=== PATIENT | male | born 1985 | race Caucasian/White ===

== ENCOUNTER 2019-12-13 07:36 | Emergency (ER) | payer SELFPAY ==
--- NOTE | 2019-12-13 07:50 | ER Document Report ---
ED Medical Screen (RME) - General Chief Complaint: Chest Pain Stated Complaint: CHEST PAIN Time Seen by Provider: 12/13/19 07:39 Notes: 34-year-old male with hypertension and GEOVANNA presents to the emergency department with chief complaint of palpitations and chest pain. Symptoms have been intermittent for the last 4 days but symptoms got acutely worse over the last several hours. Patient states that the palpitations are new for him and he has never had chest pain before. Chest pain is on the left anterior chest and does not radiate. Reported some nausea but not current, no diaphoresis, complains of shortness of breath. EXAM: Nontoxic-appearing, lungs are clear to auscultation in all [place], tachycardia with a rate of 108, S1-S2 heard no murmurs or arrhythmias. I have greeted and performed a rapid initial assessment of this patient. A comprehensive ED assessment and evaluation of the patient, analysis of test results and completion of medical decision making process will be conducted by an additional ED providers. Physical Exam - Vital signs Vitals: Temp 98.5 F 12/13/19 07:36 Course - Vital Signs Vital signs: Temp Pulse Resp BP Pulse Ox 98.5 F 12/13/19 07:36
--- NOTE | 2019-12-13 08:04 | ER Document Report ---
ED Cardiac - General Chief Complaint: Chest Pain Stated Complaint: CHEST PAIN Time Seen by Provider: 12/13/19 07:39 Notes: HPI: 34-year-old male with past medical history as recorded including high blood pressure and panic attack/anxiety. Patient states the last 4 days he has had intermittent episodes of "some palpitations" feeling some tingling to bilateral hands and feet. He denies any fevers, vomiting, calf pain or leg swelling, recent trips or travel. No cardiac history. Patient is unsure whether this is anxiety/panic related. He does smoke cigarettes. He denies any family history of early heart attacks or strokes. Currently chest pain-free. ROS: See HPI All other review of systems reviewed and otherwise negative Reviewed vital signs and nursing note as charted by RN. PHYSICAL EXAM: CONSTITUTIONAL: Alert and oriented and responds appropriately to questions. Well-appearing; well-nourished HEAD: Normocephalic; atraumatic EYES: PERRL; Conjunctivae clear, sclerae non-icteric CARD: Regular rate and rhythm; no murmurs; symmetric distal pulses RESP: Normal chest excursion without splinting or tachypnea; breath sounds clear and equal bilaterally; no wheezes, no rhonchi, no rales ABD/GI: Normal bowel sounds; non-distended; soft, non-tender; no palpable organomegaly or masses BACK: The back appears normal and is non-tender to palpation EXT: Normal ROM in all joints; non-tender to palpation; no edema SKIN: No acute lesions noted NEURO: CN 2-12 intact; 5/5 bilateral upper and lower extremity strength with sensation intact to light touch PSYCH: The patient's mood and manner are appropriate. Grooming and personal hygiene are appropriate. - Related Data Allergies/Adverse Reactions: No Known Allergies Allergy (Unverified 12/13/19 09:05) Past Medical History - Social History Smoking Status: Current Some Day Smoker Family History: Reviewed & Not Pertinent Patient has suicidal ideation: No Patient has homicidal ideation: No Physical Exam - Vital signs Vitals: Temp 98.5 F 12/13/19 07:36 Course - Re-evaluation Re-evalutation: Given the history and physical examination with intermittent symptomatology including bilateral paresthesias to the hands and feet, with a history of anxiety, with minimal cardiac risk factors, we will obtain a cardiac panel, EKG, x-ray of the chest, and reassess. I do not believe that the patient requires any further imaging or laboratory values at this time. I do have extremely low pretest probability for ACS, PE, or dissection. 12/13/19 08:03 EKG shows heart of 102, sinus tachycardia, normal axis, no obvious ST elevation or depression. Slightly inverted/flattening T waves in leads aVL, aVF, V4 through V6 12/13/19 10:07 Imaging and laboratory results as recorded. Patient is actively having no chest pain. Heart score is less than or equal to 3. Patient symptom onset was 4 days ago leading me to believe a repeat troponin is unnecessary. I have replaced the patient's potassium. Given the above history and physical, patient will be discharged home with strict return precautions and I will provide follow-up with cardiology. Patient is very comfortable with this plan. No suicidal homicidal ideations. I do not believe acute anxiety treatment is necessary at this moment. - Vital Signs Vital signs: Temp Pulse Resp BP Pulse Ox 98.5 F 12/13/19 07:36 - Laboratory Result Diagrams: 12/13/19 08:00 12/13/19 08:00 Laboratory results interpreted by me: 12/13/19 12/13/19 08:00 08:00 RBC 3.82 L Hgb 12.7 L MCV 99 H RDW 16.8 H Lymph % (Auto) 45.1 H Sodium 134.9 L Potassium 3.5 L Glucose 139 H AST 96 H Total Protein 8.4 H Discharge - Discharge Clinical Impression: Anxiety reaction Chest pain Qualifiers: Chest pain type: unspecified Qualified Code(s): R07.9 - Chest pain, unspecified Condition: Good Disposition: HOME, SELF-CARE Additional Instructions: Come back immediately for any return of pain, worsening pain, lightheadedness or dizziness, leg swelling, fevers or vomiting, or any other acute problems. Please follow-up with cardiology as we have discussed and help expedite for you. Referrals: HEMAL MCDONNELL MD [ACTIVE STAFF] - Follow up as needed
[2019-12-13 08:21] LABS: ABSOLUTE BASOPHILS # (AUTO) 0.1 10^3/uL (0.0-0.2); ABSOLUTE EOSINOPHILS # (AUTO) 0.1 10^3/uL (0.0-0.6); ABSOLUTE LYMPHOCYTES (AUTO) 2.1 10^3/uL (0.5-4.7); ABSOLUTE MONOCYTES (AUTO) 0.3 10^3/uL (0.1-1.4); ABSOLUTE NEUT (AUTO) 2.1 10^3/uL (1.7-8.2); BASOPHILS % (AUTO) 1.3 % (0-2); EOSINOPHILS % (AUTO) 1.5 % (0-6); HEMATOCRIT 37.9 % (37.9-51.0); LYMPHOCYTES % (AUTO) 45.1 % (13-45); MEAN CORPUSCULAR VOLUME 99 fl (80-97); MONOCYTES % (AUTO) 7.1 % (3-13); PLATELET COUNT 298 10^3/uL (150-450); RED BLOOD COUNT 3.82 10^6/uL (4.35-5.55); RED CELL DISTRIBUTION WIDTH 16.8 % (11.5-14.0); TOTAL CELLS COUNTED % (AUTO) 100 %; WHITE BLOOD COUNT 4.7 10^3/uL (4.0-10.5)
--- NOTE | 2019-12-13 08:28 | RADIOLOGY REPORT (SQ) ---
EXAM DESCRIPTION: CHEST SINGLE VIEW IMAGES COMPLETED DATE/TIME: 12/13/2019 8:20 am REASON FOR STUDY: chest pain COMPARISON: None. EXAM PARAMETERS: NUMBER OF VIEWS: One view. TECHNIQUE: Single frontal radiographic view of the chest acquired. RADIATION DOSE: NA LIMITATIONS: None. FINDINGS: LUNGS AND PLEURA: Calcified granulomas. No opacities, masses or pneumothorax. No pleural effusion. MEDIASTINUM AND HILAR STRUCTURES: No masses. Contour normal. HEART AND VASCULAR STRUCTURES: Heart normal in size. Normal vasculature. BONES: No acute findings. HARDWARE: None in the chest. OTHER: No other significant finding. IMPRESSION: NO ACUTE RADIOGRAPHIC FINDING IN THE CHEST. TECHNICAL DOCUMENTATION: JOB ID: [id number] 2010 [employer]- All Rights Reserved Reading location - IP/workstation name: [email or web address]
[2019-12-13 08:36] LABS: ALBUMIN 4.8 g/dL (3.5-5.0); ALKALINE PHOSPHATASE 111 U/L (38-126); ANION GAP 12 (5-19); ASPARTATE AMINO TRANSFERASE 96 U/L (17-59); BILIRUBIN,DIRECT 0.1 mg/dL (0.0-0.4); BILIRUBIN,TOTAL 0.6 mg/dL (0.2-1.3); BLOOD UREA NITROGEN 8 mg/dL (7-20); CALCIUM 9.8 mg/dL (8.4-10.2); CARBON DIOXIDE 24 mmol/L (22-30); CHLORIDE 99 mmol/L (98-107); GLUCOSE 139 mg/dL (75-110); POTASSIUM 3.5 mmol/L (3.6-5.0); TOTAL PROTEIN 8.4 g/dL (6.3-8.2)
[2019-12-13 08:39] LABS: HEMOGLOBIN 12.7 g/dL (13.5-17.0); MEAN CORPUSCULAR HEMOGLOBIN 33.3 pg (27.0-33.4)
[2019-12-13 08:40] LABS: MEAN CORPUSCULAR HGB CONC 33.6 g/dL (32.0-36.0)
[2019-12-13 08:59] LABS: URINE AMPHETAMINES SCREEN NEGATIVE; URINE BARBITURATES SCREEN NEGATIVE; URINE BENZODIAZEPINES SCREEN NEGATIVE; URINE COCAINE SCREEN NEGATIVE; URINE MARIJUANA (THC) SCREEN NEGATIVE; URINE METHADONE SCREEN NEGATIVE; URINE PHENCYCLIDINE SCREEN NEGATIVE
[2019-12-13] MEDS ORDERED: POTASSIUM CHLORIDE 10 MEQ TABLET.ER PO ONE (09:41)
[2019-12-13] MEDS ORDERED: LORAZEPAM 1 MG TABLET PO ONE (11:03)
[2019-12-13] MEDS ORDERED: NORMAL SALINE 1000 ML 1,000 ML IV ONE (11:57)
[2019-12-13 13:35] VITALS: BP 136/86
--- NOTE | 2019-12-13 15:27 | EKG REPORT ---
SEVERITY:- BORDERLINE ECG - SINUS TACHYCARDIA BORDERLINE T WAVE ABNORMALITIES : Confirmed by: Taty Vicente MD 13-Dec-2019 15:26:35
--- NOTE | 2019-12-13 15:27 | EKG REPORT ---
SEVERITY:- OTHERWISE NORMAL ECG - SINUS TACHYCARDIA : Confirmed by: Taty Vicente MD 13-Dec-2019 15:26:32
== END 2019-12-13 13:52 | disposition home or self-care (01) ==
LOC: ER 07:36
DX: F41.1 Generalized anxiety disorder (principal); R07.9 Chest pain, unspecified; R00.0 Tachycardia, unspecified; R20.2 Paresthesia of skin; F17.210 Nicotine dependence, cigarettes, uncomplicated; I10 Essential (primary) hypertension
CPT/HCPCS: 93005; 99284; 96360; 36415; 84443; 85025; 80053; 84484; 80307; 85379; 71045; 93010; J7030